=== PATIENT | male | born 1950 | race Caucasian/White ===

== ENCOUNTER 2019-05-22 11:21 | Day surgery (SDC) | payer MEDICARE ==
[~2019-05-22] VITALS: Ht 165.1 cm; Wt 105.2 kg
[~2019-05-22 11:21] MED LIST: ALL10TAB29 PO; ASPI81TA26 PO; ATOR40TA75 PO; CIDA500T2 PO; D 202000 PO; LISI20TA20 PO; MAGN400C PO; METF10004 PO; METF500T13 PO; MULT1TAB8 PO; NS 1,000 ML IV ONE; VITA-122 PO; VITA500C24 PO
[2019-05-22] MEDS ORDERED: propofoL 200 MG/20 ML VIAL As Ordered ONE (12:40)
--- NOTE | 2019-05-22 12:58 | ROOR ---
Patient Name: Theodore Santana Procedure Date: 05/22/2019 12:39 PM Date of : 1950 Age: 68 Room: [facility] Gender: Male Note Status: Finalized Procedure: Total Colonoscopy to Cecum Indications: High risk colon cancer surveillance: Personal history of colonic polyps, Last colonoscopy: 2014 Providers: Glenroy Hodge MD Referring MD: John oRmero MD Requesting Provider: Medicines: Monitored Anesthesia Care Complications: No immediate complications. Procedure: Pre-Anesthesia Assessment: - The heart rate, respiratory rate, oxygen saturations, blood pressure, adequacy of pulmonary ventilation, and response to care were monitored throughout the procedure. The Colonoscope was introduced through the anus and advanced to the cecum, identified by appendiceal orifice and ileocecal valve. The colonoscopy was performed without difficulty. The patient tolerated the procedure well. The quality of the bowel preparation was excellent. Findings: The perianal and digital rectal examinations were normal. Non-bleeding internal hemorrhoids were found during retroflexion. The hemorrhoids were small and Grade I (internal hemorrhoids that do not prolapse). Multiple small and large-mouthed diverticula were found in the recto-sigmoid colon, sigmoid colon and descending colon. The exam was otherwise without abnormality on direct and retroflexion views. Impression: - Non-bleeding internal hemorrhoids. - Diverticulosis in the recto-sigmoid colon, in the sigmoid colon and in the descending colon. - The examination was otherwise normal on direct and retroflexion views. - No specimens collected. - The exam was otherwise normal to the cecum. Recommendation: - Patient has a contact number available for emergencies. The signs and symptoms of potential delayed complications were discussed with the patient. Return to normal activities tomorrow. Written discharge instructions were provided to the patient. - High fiber diet. - Discharge patient to home. - Continue present medications. - Repeat colonoscopy in 5 years for surveillance. - Return to referring physician. - The findings and recommendations were discussed with the patient's family. Glenroy Hodge MD Glenroy Hodge MD 05/22/2019 12:57:43 PM Electronically signed by Glenroy Hodge MD Number of Addenda: 0 Note Initiated On: 05/22/2019 12:39 PM Estimated Blood Loss: Estimated blood loss: none.
[2019-05-22 13:20] VITALS: BP 100/69
== END 2019-05-22 13:29 | disposition home or self-care (01) ==
LOC: M OPP 11:21
PROVIDERS: ATTEND Internal Medicine Gastroenterology
DX: Z12.11 Encounter for screening for malignant neoplasm of colon (principal); Z86.010 Personal history of colon polyps; K64.0 First degree hemorrhoids; K57.30 Diverticulosis of large intestine without perforation or abscess without bleeding; E11.9 Type 2 diabetes mellitus without complications; Z79.82 Long term (current) use of aspirin; Z79.84 Long term (current) use of oral hypoglycemic drugs; Z79.899 Other long term (current) drug therapy; Z87.891 Personal history of nicotine dependence